=== PATIENT | male | born 1950 ===

== ENCOUNTER 2018-11-08 12:13 | Emergency (ER) | payer MEDICARE ==
--- NOTE | 2018-11-08 13:01 | UC ---
Throat Pain/Nasal Edward HPI - HPI Summary HPI Summary: 68 yo male presents with a sore throat and sinus "burning" that began last night. He feels better today. Did a warm salt water gargle last night and felt better. Has not taken anything OTC. Denies fever, chills, cough. - History of Current Complaint Chief Complaint: UCGeneralIllness Stated Complaint: SORE THROAT SINUS ISSUE Time Seen by Provider: 11/08/18 13:01 Hx Obtained From: Patient Onset/Duration: Sudden Onset Severity: Moderate Pain Intensity: 6 Pain Scale Used: 0-10 Numeric - Allergies/Home Medications Allergies/Adverse Reactions: Allergies Allergy/AdvReac Type Severity Reaction Status Date / Time No Known Allergies Allergy Verified 11/08/18 12:48 Home Medications: Home Medications NK [No Home Medications Reported] 11/08/18 [History Confirmed 11/08/18] PMH/Surg Hx/FS Hx/Imm Hx - Additional Past Medical History Additional PMH: None - Surgical History Surgical History: Yes Surgery Procedure, Year, and Place: throat/bone removed infected 1969 - Family History Known Family History: Positive: Unknown - Social History Occupation: Retired Lives: With Family Alcohol Use: None Substance Use Type: None Smoking Status (MU): Former Smoker Length of Time of Smoking/Using Tobacco: 20 Have You Smoked in the Last Year: No When Did the Patient Quit Smoking/Using Tobacco: 1990 Review of Systems All Other Systems Reviewed And Are Negative: Yes Constitutional: Positive: Negative Skin: Positive: Negative Eyes: Positive: Negative ENT: Positive: Sore Throat, Sinus Pain/Tenderness Respiratory: Positive: Negative Cardiovascular: Positive: Negative Neurological: Positive: Negative Psychological: Positive: Negative Physical Exam - Summary Physical Exam Summary: GENERAL: NAD. WDWN. No pain distress. SKIN: No rashes, sores, lesions, or open wounds. HEENT: Head: AT/NC Eyes: EOM intact. Conjunctiva clear without inflammation or discharge. Ears: Hearing grossly normal. TMs intact, no bulging, erythema, or edema. Nose: Nasal mucosa pink and moist. NTTP maxillary and frontal sinus. Throat: Posterior oropharynx without exudates, erythema, or tonsillar enlargement. Uvula midline. NECK: Supple. Nontender. No lymphadenopathy. CHEST: CTAB. No r/r/w. No accessory muscle use. Breathing comfortably and in no distress. CV: RRR. Without m/r/g. Pulses intact. Cap refill <2seconds NEURO: Alert. PSYCH: Age appropriate behavior. Triage Information Reviewed: Yes Vital Signs: Initial Vital Signs Temp 97.4 F 11/08/18 12:40 Pulse 74 11/08/18 12:40 Resp 18 11/08/18 12:40 BP 135/78 11/08/18 12:40 Pulse Ox 99 11/08/18 12:40 Laboratory Tests 11/08/18 13:00 Group A Strep Rapid Negative Vital Signs Reviewed: Yes Throat Pain/Nasal Course/Dx - Course Course Of Treatment: Suspect viral illness. Advised to try tylenol and flonase OTC. F/u if symptoms worsen. - Differential Dx/Diagnosis Provider Diagnosis: Viral syndrome Discharge - Sign-Out/Discharge Documenting (check all that apply): Patient Departure All imaging exams completed and their final reports reviewed: No Studies - Discharge Plan Condition: Stable Disposition: HOME Patient Education Materials: Viral Syndrome (ED) Referrals: Ilya Matta MD [Primary Care Provider] - Additional Instructions: If you develop a fever, shortness of breath, chest pain, new or worsening symptoms - please call your PCP or go to the ED. Please try a humidifier at bedtime and daily Flonase over the counter to help your sinus symptoms - Billing Disposition and Condition Condition: STABLE Disposition: Home
== END 2018-11-08 13:26 | disposition home or self-care (01) ==
LOC: UCEAST 12:13
DX: B34.9 Viral infection, unspecified (principal); Z87.891 Personal history of nicotine dependence
CPT/HCPCS: 87651; 99201; G0463

== ENCOUNTER 2018-11-13 12:29 | Emergency (ER) | payer MEDICARE ==
[2018-11-13 12:57] VITALS: BP 127/71
--- NOTE | 2018-11-13 13:11 | UC ---
Eye Complaint HPI - HPI Summary HPI Summary: 68 yo male presents with b/l eye redness and drainage. He tells me that last week he developed some URI symptoms, which have improve. His eye redness, however, has gotten worse. Started in his left eye with some redness and clear drainage. Has progressed to both eyes and now has yellow crusting. Waking up "crusted shut". Denies fever, chills, vision changes, sore throat, cough. - History of Current Complaint Chief Complaint: UCEye Stated Complaint: EYE DRAINAGE Time Seen by Provider: 11/13/18 13:11 Hx Obtained From: Patient Severity Currently: None Pain Intensity: 0 - Allergies/Home Medications Allergies/Adverse Reactions: Allergies Allergy/AdvReac Type Severity Reaction Status Date / Time No Known Allergies Allergy Verified 11/13/18 12:56 Home Medications: Home Medications Multivitamin [Multivitamins] 1 cap PO DAILY 11/13/18 [History Confirmed 11/13/18 ] PMH/Surg Hx/FS Hx/Imm Hx - Additional Past Medical History Additional PMH: None - Surgical History Surgical History: Yes Surgery Procedure, Year, and Place: throat/bone removed infected 1969 - Family History Known Family History: Positive: Unknown - Social History Lives: With Family Alcohol Use: None Substance Use Type: None Smoking Status (MU): Former Smoker Length of Time of Smoking/Using Tobacco: 20 Have You Smoked in the Last Year: No When Did the Patient Quit Smoking/Using Tobacco: 1990 Review of Systems All Other Systems Reviewed And Are Negative: Yes Constitutional: Positive: Negative Skin: Positive: Negative Eyes: Positive: Drainage, Eye Redness ENT: Positive: Negative Respiratory: Positive: Negative Cardiovascular: Positive: Negative Gastrointestinal: Positive: Negative Neurovascular: Positive: Negative Neurological: Positive: Negative Psychological: Positive: Negative Physical Exam - Summary Physical Exam Summary: GENERAL: WDWN. No pain distress. SKIN: No rashes, sores, lesions, or open wounds. HEENT: Head: AT/NC Eyes: EOM intact. PERRLA. B/L EYEs: Mild scleral injection. Conjunctiva with mild erythema and inflammation. Mild clear discharge. No FBs appreciated Nose: NTTP maxillary and frontal sinus. NECK: Supple. Nontender. No lymphadenopathy. CHEST: No accessory muscle use. Breathing comfortably and in no distress. CV: Pulses intact. Cap refill <2seconds NEURO: Alert. PSYCH: Age appropriate behavior. Triage Information Reviewed: Yes Vital Signs: Initial Vital Signs Temp 97.2 F 11/13/18 12:53 Pulse 52 11/13/18 12:53 Resp 18 11/13/18 12:53 BP 127/71 11/13/18 12:53 Pulse Ox 100 11/13/18 12:53 Vital Signs Reviewed: Yes Eye Complaint Course/Dx - Course Course Of Treatment: Conjunctivitis - Differential Dx/Diagnosis Provider Diagnosis: Conjunctivitis Discharge - Sign-Out/Discharge Documenting (check all that apply): Patient Departure All imaging exams completed and their final reports reviewed: No Studies - Discharge Plan Condition: Stable Disposition: HOME Prescriptions: Polymyx/Trimethoprim OPTH* [Polytrim OPHTH*] 1 drop BOTH EYES TID #1 btl Patient Education Materials: Conjunctivitis (ED) Referrals: Ilya Matta MD [Primary Care Provider] - Additional Instructions: If you develop a fever, shortness of breath, chest pain, new or worsening symptoms - please call your PCP or go to the ED. - Billing Disposition and Condition Condition: STABLE Disposition: Home
== END 2018-11-13 13:24 | disposition home or self-care (01) ==
LOC: UCEAST 12:29
DX: H10.9 Unspecified conjunctivitis (principal); Z87.891 Personal history of nicotine dependence
CPT/HCPCS: 99212; G0463